=== PATIENT | male | born 1960 | race African-American/Black ===

== ENCOUNTER 2016-05-16 13:44 | Emergency (ER) | payer MEDICAID ==
[2015-04-22 07:45] VITALS: BMI 34.4
[~2016-05-16 13:44] MED LIST: DILANTIN100 MG PO; GLIMEPIRIDE1 MG PO; GLUCOPHAGE500 MG PO; HYDRALAZINE HCL25 MG PO; HYDROCODONE-APA1 TAB PO; HYTRIN1 MG PO; LANTUS SOL100 UNIT/1 SC; LANTUS SOL100 UNIT/1 SQ; NORVASC10 MG; TOPROL XL50 MG PO; ZESTRIL40 MG PO
[2016-05-16 15:05] LABS: BASOPHILS 0.3 % (0.0-2.0); EOSINOPHILS 1.8 % (0-7); HEMOGLOBIN 12.3 g/dL (13.5-17.5); LYMPHOCYTES 43.4 % (15-50); MCH 28.7 pg (26.0-34.0); MCHC 32.4 g/dL (31.0-37.0); MCV 88.8 fL (80.0-100.0); MEAN PLATELET VOLUME 9.4 fL (7.4-10.4); MONOCYTES 15.4 % (2-11); NEUTROPHILS 39.1 % (40-80); PLATELET COUNT 175 10x3/uL (130-400); RBC 4.28 10x6/uL (4.20-6.10); RDW 14.3 % (11.5-14.5); WBC 3.3 10x3/uL (4.8-10.8)
[2016-05-16 15:29] LABS: ALBUMIN 3.1 g/dL (3.4-5.0); ALKALINE PHOSPHATASE 170 U/L (46-116); ALT (SGPT) 38 U/L (10-68); BILIRUBIN - TOTAL 0.18 mg/dL (0.2-1.3); CALC OSMOLALITY 298 mosm/kg (275-300); CALCIUM 9.3 mg/dL (8.5-10.1); CARBON DIOXIDE 29.2 mmol/L (21.0-32.0); CHLORIDE - SERUM 107 mmol/L (98-107); CREATININE - SERUM 0.9 mg/dL (0.6-1.3); GLUCOSE 325 mg/dL (74-106); POTASSIUM - SERUM 3.7 mmol/L (3.5-5.1); PROTEIN - SERUM 6.9 g/dL (6.4-8.2); SODIUM 143 mmol/L (136-145); UREA NITROGEN 14 mg/dL (7-18); eGFR NON AFRICAN AMERICAN > 90 mL/min (90-120)
== END 2016-05-16 16:44 | disposition home or self-care (01) ==
LOC: D.ER 13:44
PROVIDERS: Emergency Medicine
DX: E11.65 Type 2 diabetes mellitus with hyperglycemia (principal); Z79.4 Long term (current) use of insulin; G40.909 Epilepsy, unspecified, not intractable, without status epilepticus; I10 Essential (primary) hypertension; E78.5 Hyperlipidemia, unspecified

== ENCOUNTER 2016-07-31 15:48 | Emergency (ER) | payer MEDICAID ==
[2015-04-22 07:45] VITALS: BMI 34.4
== END 2016-07-31 17:21 | disposition home or self-care (01) ==
LOC: D.ER 15:48
DX: K59.00 Constipation, unspecified (principal); G40.909 Epilepsy, unspecified, not intractable, without status epilepticus; E11.9 Type 2 diabetes mellitus without complications; E78.5 Hyperlipidemia, unspecified; I10 Essential (primary) hypertension

== ENCOUNTER 2016-11-10 11:27 | Emergency (ER) | payer MEDICAID ==
[2015-04-22 07:45] VITALS: BMI 34.4
[2016-11-10 12:08] LABS: BASOPHILS 0.2 % (0-2); EOSINOPHILS 0.7 % (0-7); HEMATOCRIT 36.5 % (42.0-54.0); HEMOGLOBIN 12.3 g/dL (13.5-17.5); IMMATURE GRANULOCYTES 0.2 % (0-5); LYMPHOCYTES 21.1 % (15-50); MCH 29.9 pg (26.0-34.0); MCHC 33.7 g/dL (31.0-37.0); MCV 88.6 fL (80.0-100.0); MEAN PLATELET VOLUME 9.2 fL (7.4-10.4); MONOCYTES 14.4 % (2-11); NEUTROPHILS 63.4 % (40-80); PLATELET COUNT 192 10x3/uL (130-400); RBC 4.12 10x6/uL (4.20-6.10); RDW 13.7 % (11.5-14.5); WBC 4.6 10x3/uL (4.8-10.8)
[2016-11-10 12:23] LABS: ALBUMIN 2.7 g/dL (3.4-5.0); ALKALINE PHOSPHATASE 168 U/L (46-116); ALT (SGPT) 19 U/L (10-68); BILIRUBIN - TOTAL 0.24 mg/dL (0.2-1.3); CALC OSMOLALITY 279 mosm/kg (275-300); CALCIUM 9.1 mg/dL (8.5-10.1); CARBON DIOXIDE 28.4 mmol/L (21.0-32.0); CHLORIDE - SERUM 103 mmol/L (98-107); CREATININE - SERUM 0.8 mg/dL (0.6-1.3); POTASSIUM - SERUM 3.7 mmol/L (3.5-5.1); SODIUM 136 mmol/L (136-145); UREA NITROGEN 10 mg/dL (7-18); eGFR NON AFRICAN AMERICAN > 90 mL/min (90-120)
[2016-11-10 12:28] LABS: GLUCOSE 262 mg/dL (74-106)
[2016-11-10 14:47] LABS: APPEARANCE CLEAR (CLEAR); COLOR DK YELLOW (YELLOW); SPECIFIC GRAVITY 1.015 (1.005-1.020)
[2016-11-10 14:48] LABS: BILIRUBIN NEGATIVE (NEGATIVE); GLUCOSE 1000 mg/dL (NEGATIVE); KETONE NEGATIVE (NEGATIVE); LEUKOCYTE ESTERASE NEGATIVE (NEGATIVE); NITRITE NEGATIVE (NEGATIVE); PROTEIN 1+ mg/dL (NEGATIVE); UROBILINOGEN NORMAL (NORMAL)
[2016-11-10 14:51] LABS: RED CELLS - URINE 0-5 /hpf (0-5); WHITE CELLS - URINE 0-5 /hpf (0-5)
[2016-11-10 14:52] LABS: AMORPHOUS SEDIMENT <1+ /lpf (NONE SEEN); BACTERIA FEW /hpf (NONE SEEN)
== END 2016-11-10 15:20 | disposition home or self-care (01) ==
LOC: D.ER 11:27
PROVIDERS: Emergency Medicine
DX: R73.9 Hyperglycemia, unspecified (principal); B37.9 Candidiasis, unspecified; I10 Essential (primary) hypertension

== ENCOUNTER 2016-11-13 07:47 | Emergency (ER) | payer MEDICAID ==
[2015-04-22 07:45] VITALS: BMI 34.4
[2016-11-13 08:45] LABS: BASOPHILS 0.3 % (0-2); EOSINOPHILS 4.7 % (0-7); HEMATOCRIT 36.3 % (42.0-54.0); LYMPHOCYTES 30.4 % (15-50); MCH 29.5 pg (26.0-34.0); MCHC 33.1 g/dL (31.0-37.0); MCV 89.2 fL (80.0-100.0); MONOCYTES 8.8 % (2-11); NEUTROPHILS 55.8 % (40-80); PLATELET COUNT 182 10x3/uL (130-400); RBC 4.07 10x6/uL (4.20-6.10); RDW 13.9 % (11.5-14.5); WBC 3.4 10x3/uL (4.8-10.8)
[2016-11-13 09:03] LABS: ALBUMIN 2.7 g/dL (3.4-5.0); ALKALINE PHOSPHATASE 156 U/L (46-116); ALT (SGPT) 23 U/L (10-68); BILIRUBIN - TOTAL 0.22 mg/dL (0.2-1.3); CALC OSMOLALITY 284 mosm/kg (275-300); CALCIUM 9.5 mg/dL (8.5-10.1); CARBON DIOXIDE 28.6 mmol/L (21.0-32.0); CHLORIDE - SERUM 105 mmol/L (98-107); CREATININE - SERUM 0.8 mg/dL (0.6-1.3); GLUCOSE 196 mg/dL (74-106); PHENYTOIN (DILANTIN) 3.5 ug/mL (10.0-20.0); POTASSIUM - SERUM 3.7 mmol/L (3.5-5.1); SODIUM 141 mmol/L (136-145); UREA NITROGEN 9 mg/dL (7-18); eGFR NON AFRICAN AMERICAN > 90 mL/min (90-120)
[2016-11-13 10:32] LABS: APPEARANCE CLEAR (CLEAR); BILIRUBIN NEGATIVE (NEGATIVE); COLOR YELLOW (YELLOW); GLUCOSE 100 mg/dL (NEGATIVE); KETONE NEGATIVE (NEGATIVE); LEUKOCYTE ESTERASE NEGATIVE (NEGATIVE); NITRITE NEGATIVE (NEGATIVE); PROTEIN TRACE mg/dL (NEGATIVE); SPECIFIC GRAVITY 1.005 (1.005-1.020); UROBILINOGEN NORMAL (NORMAL)
[2016-11-13 10:34] LABS: RED CELLS - URINE NONE SEEN /hpf (0-5); WHITE CELLS - URINE RARE /hpf (0-5)
== END 2016-11-13 11:09 | disposition home or self-care (01) ==
LOC: D.ER 07:47
PROVIDERS: Emergency Medicine
DX: G40.909 Epilepsy, unspecified, not intractable, without status epilepticus (principal); Z91.14 Patient's other noncompliance with medication regimen; E11.9 Type 2 diabetes mellitus without complications; I10 Essential (primary) hypertension

== ENCOUNTER 2016-11-16 16:00 | Emergency (ER) | payer MEDICAID ==
[2015-04-22 07:45] VITALS: BMI 34.4
[2016-11-16 17:12] LABS: BASOPHILS 0.6 % (0-2); EOSINOPHILS 2.5 % (0-7); HEMATOCRIT 39.1 % (42.0-54.0); HEMOGLOBIN 12.9 g/dL (13.5-17.5); LYMPHOCYTES 40.1 % (15-50); MCH 29.6 pg (26.0-34.0); MCV 89.7 fL (80.0-100.0); MEAN PLATELET VOLUME 9.7 fL (7.4-10.4); NEUTROPHILS 38.8 % (40-80); PLATELET COUNT 190 10x3/uL (130-400); RBC 4.36 10x6/uL (4.20-6.10); RDW 14.4 % (11.5-14.5); WBC 3.2 10x3/uL (4.8-10.8)
[2016-11-16 17:39] LABS: ALBUMIN 2.9 g/dL (3.4-5.0); ALKALINE PHOSPHATASE 172 U/L (46-116); ALT (SGPT) 28 U/L (10-68); BILIRUBIN - TOTAL 0.17 mg/dL (0.2-1.3); CALC OSMOLALITY 295 mosm/kg (275-300); CALCIUM 9.5 mg/dL (8.5-10.1); CARBON DIOXIDE 27.3 mmol/L (21.0-32.0); CHLORIDE - SERUM 103 mmol/L (98-107); POTASSIUM - SERUM 4.2 mmol/L (3.5-5.1); PROTEIN - SERUM 7.2 g/dL (6.4-8.2); SODIUM 138 mmol/L (136-145); UREA NITROGEN 17 mg/dL (7-18); eGFR NON AFRICAN AMERICAN 83 mL/min (90-120)
[2016-11-16 17:53] LABS: GLUCOSE 431 mg/dL (74-106)
[2016-11-16 18:46] LABS: AMYLASE - SERUM 61 U/L (25-115); LIPASE 172 U/L (73-393)
[2016-11-16 21:41] LABS: APPEARANCE CLEAR (CLEAR); COLOR YELLOW (YELLOW); SPECIFIC GRAVITY 1.015 (1.005-1.020)
[2016-11-16 21:42] LABS: BILIRUBIN NEGATIVE (NEGATIVE); GLUCOSE 500 mg/dL (NEGATIVE); KETONE NEGATIVE (NEGATIVE); LEUKOCYTE ESTERASE NEGATIVE (NEGATIVE); NITRITE NEGATIVE (NEGATIVE); PROTEIN TRACE mg/dL (NEGATIVE); UROBILINOGEN NORMAL (NORMAL)
== END 2016-11-16 23:41 | disposition home or self-care (01) ==
LOC: D.ER 16:00
PROVIDERS: Emergency Medicine; Nurse Practitioner Family
DX: R10.9 Unspecified abdominal pain (principal); E11.9 Type 2 diabetes mellitus without complications; I10 Essential (primary) hypertension; F17.200 Nicotine dependence, unspecified, uncomplicated

== ENCOUNTER 2017-01-17 11:53 | Outpatient (CLI) | payer MEDICAID ==
[~2017-01-17] VITALS: Ht 190.5 cm; Wt 121.4 kg
[2017-01-17 13:44] VITALS: BP 148/75; Ht 190.5 cm; Wt 121.4 kg
--- NOTE | 2017-01-17 13:59 | NUR ---
HALF A BAG OF SS ENEMA TO PATIENT WHILE HE IS LYING ON LEFT SIDE. UNABLE TO FEEL STOOL, BUT END OF ENEMA TIP HAS SOFT BROWN STOOL. INSTRUCTED WHEN HE EXPELS ENEMA TO CALL US FOR SECOND ENEMA.
== END 2017-01-17 16:30 | disposition home or self-care (01) ==
LOC: D.OPS 11:53 → D.ER 11:53 → EDSTATUS 13:00 → D.OPS 16:30
DX: K59.00 Constipation, unspecified (principal); K62.89 Other specified diseases of anus and rectum; I10 Essential (primary) hypertension; E11.9 Type 2 diabetes mellitus without complications

== ENCOUNTER 2017-01-29 01:28 | Emergency (ER) | payer MEDICAID ==
[2017-01-17 13:44] VITALS: BMI 33.4
== END 2017-01-29 06:23 | disposition home or self-care (01) ==
LOC: D.ER 01:28
DX: K59.00 Constipation, unspecified (principal); R33.9 Retention of urine, unspecified; E11.9 Type 2 diabetes mellitus without complications; I10 Essential (primary) hypertension

== ENCOUNTER 2017-01-29 13:00 | Emergency (ER) | payer MEDICAID ==
[2017-01-17 13:44] VITALS: BMI 33.4
[2017-01-29 17:13] LABS: BASOPHILS 0.3 % (0-2); EOSINOPHILS 0 % (0-7); HEMATOCRIT 40.8 % (42.0-54.0); HEMOGLOBIN 13.6 g/dL (13.5-17.5); IMMATURE GRANULOCYTES 0.1 % (0-5); LYMPHOCYTES 13.4 % (15-50); MCH 29.6 pg (26.0-34.0); MCHC 33.3 g/dL (31.0-37.0); MCV 88.9 fL (80.0-100.0); MEAN PLATELET VOLUME 10.5 fL (7.4-10.4); MONOCYTES 8.1 % (2-11); NEUTROPHILS 78.1 % (40-80); PLATELET COUNT 184 10x3/uL (130-400); RBC 4.59 10x6/uL (4.20-6.10); RDW 13.9 % (11.5-14.5)
[2017-01-29 17:14] LABS: INR 1.02 (0.85-1.17); PROTIME 13.2 SECONDS (11.6-15.0)
[2017-01-29 17:40] LABS: ALBUMIN 3.2 g/dL (3.4-5.0); ALKALINE PHOSPHATASE 210 U/L (46-116); ALT (SGPT) 18 U/L (10-68); AMYLASE - SERUM 44 U/L (25-115); BILIRUBIN - TOTAL 0.44 mg/dL (0.2-1.3); CALC OSMOLALITY 273 mosm/kg (275-300); CALCIUM 9.5 mg/dL (8.5-10.1); CARBON DIOXIDE 21.8 mmol/L (21.0-32.0); CHLORIDE - SERUM 98 mmol/L (98-107); CREATININE - SERUM 0.8 mg/dL (0.6-1.3); LIPASE 76 U/L (73-393); POTASSIUM - SERUM 3.6 mmol/L (3.5-5.1); PROTEIN - SERUM 7.9 g/dL (6.4-8.2); SODIUM 134 mmol/L (136-145); UREA NITROGEN 13 mg/dL (7-18); eGFR NON AFRICAN AMERICAN > 90 mL/min (90-120)
[2017-01-29 17:41] LABS: APPEARANCE HAZY (CLEAR); BILIRUBIN NEGATIVE (NEGATIVE); COLOR YELLOW (YELLOW); GLUCOSE NEGATIVE (NEGATIVE); KETONE MODERATE mg/dL (NEGATIVE); LEUKOCYTE ESTERASE NEGATIVE (NEGATIVE); NITRITE NEGATIVE (NEGATIVE); PROTEIN TRACE mg/dL (NEGATIVE); SPECIFIC GRAVITY 1.025 (1.005-1.020); UROBILINOGEN NORMAL (NORMAL)
[2017-01-29 17:42] LABS: BACTERIA FEW /hpf (NONE SEEN)
[2017-01-29 17:45] LABS: GLUCOSE 208 mg/dL (74-106)
== END 2017-01-29 18:36 | disposition home or self-care (01) ==
LOC: D.ER 13:00
PROVIDERS: Physician Assistant
DX: K59.00 Constipation, unspecified (principal); K56.41 Fecal impaction; N39.0 Urinary tract infection, site not specified; E11.9 Type 2 diabetes mellitus without complications; I10 Essential (primary) hypertension

== ENCOUNTER 2017-06-13 14:02 | Emergency (ER) | payer MEDICAID ==
[2017-01-17 13:44] VITALS: BMI 33.4
[2017-06-13 16:02] LABS: APPEARANCE HAZY (CLEAR); BILIRUBIN NEGATIVE (NEGATIVE); COLOR YELLOW (YELLOW); GLUCOSE 50 mg/dL (NEGATIVE); KETONE NEGATIVE (NEGATIVE); NITRITE NEGATIVE (NEGATIVE); PROTEIN 1+ mg/dL (NEGATIVE); SPECIFIC GRAVITY 1.005 (1.005-1.020); UROBILINOGEN NORMAL (NORMAL)
[2017-06-13 16:03] LABS: RED CELLS - URINE 0-5 /hpf (0-5); WHITE CELLS - URINE >50 /hpf (0-5)
[2017-06-13 16:04] LABS: BACTERIA FEW /hpf (NONE SEEN)
== END 2017-06-13 16:45 | disposition home or self-care (01) ==
LOC: D.ER 14:02
PROVIDERS: Emergency Medicine
DX: K64.9 Unspecified hemorrhoids (principal); N39.0 Urinary tract infection, site not specified; I10 Essential (primary) hypertension; E11.9 Type 2 diabetes mellitus without complications

== ENCOUNTER 2017-06-14 11:34 | Emergency (ER) | payer MEDICAID ==
[2017-01-17 13:44] VITALS: BMI 33.4
== END 2017-06-14 15:21 | disposition home or self-care (01) ==
LOC: D.ER 11:34
DX: K61.0 Anal abscess (principal); E11.9 Type 2 diabetes mellitus without complications; I10 Essential (primary) hypertension; G40.909 Epilepsy, unspecified, not intractable, without status epilepticus

== ENCOUNTER 2017-07-21 10:54 | Emergency (ER) | payer MEDICAID ==
[2017-01-17 13:44] VITALS: BMI 33.4
[2017-07-21 11:38] LABS: BASOPHILS 0.1 % (0-2); EOSINOPHILS 0.2 % (0-7); HEMATOCRIT 29.9 % (42.0-54.0); IMMATURE GRANULOCYTES 0.3 % (0-5); LYMPHOCYTES 9.7 % (15-50); MCH 28.5 pg (26.0-34.0); MCHC 33.4 g/dL (31.0-37.0); MCV 85.2 fL (80.0-100.0); MEAN PLATELET VOLUME 8.1 fL (7.4-10.4); MONOCYTES 7.2 % (2-11); NEUTROPHILS 82.5 % (40-80); RBC 3.51 10x6/uL (4.20-6.10); RDW 14.5 % (11.5-14.5); WBC 13.2 10x3/uL (4.8-10.8)
[2017-07-21 11:39] LABS: PLATELET COUNT 331 10x3/uL (130-400)
[2017-07-21 11:53] LABS: ALBUMIN 1.8 g/dL (3.4-5.0); ALKALINE PHOSPHATASE 175 U/L (46-116); ALT (SGPT) 15 U/L (10-68); BILIRUBIN - TOTAL 0.44 mg/dL (0.2-1.3); CALC OSMOLALITY 265 mosm/kg (275-300); CALCIUM 10.2 mg/dL (8.5-10.1); CARBON DIOXIDE 26.1 mmol/L (21.0-32.0); CHLORIDE - SERUM 93 mmol/L (98-107); GLUCOSE 250 mg/dL (74-106); POTASSIUM - SERUM 3.8 mmol/L (3.5-5.1); PROTEIN - SERUM 8.5 g/dL (6.4-8.2); SODIUM 129 mmol/L (136-145); UREA NITROGEN 10 mg/dL (7-18); eGFR NON AFRICAN AMERICAN 82 mL/min (90-120)
[2017-07-21 12:02] LABS: CREATINE KINASE 15 UL (21-232); LIPASE 67 U/L (73-393); PRO BNP 235 pg/mL (0-125); TROPONIN-I < 0.017 ng/mL (0.000-0.060)
[2017-07-21 13:44] LABS: APPEARANCE HAZY (CLEAR); BILIRUBIN NEGATIVE (NEGATIVE); COLOR YELLOW (YELLOW); GLUCOSE 250 mg/dL (NEGATIVE); KETONE SMALL mg/dL (NEGATIVE); NITRITE NEGATIVE (NEGATIVE); PROTEIN 1+ mg/dL (NEGATIVE); UROBILINOGEN NORMAL (NORMAL)
[2017-07-21 13:50] LABS: BACTERIA MODERATE /hpf (NONE SEEN); EPITHELIAL CELLS OCC /hpf (0-5); HYALINE CAST OCC /lpf (NONE SEEN); WHITE CELLS - URINE 25-50 /hpf (0-5)
[2017-07-21 13:57] LABS: UDS - AMPHET NEGATIVE QUAL (NEGATIVE); UDS - BARB NEGATIVE QUAL (NEGATIVE); UDS - BENZO NEGATIVE QUAL (NEGATIVE); UDS - COCAINE NEGATIVE QUAL (NEGATIVE); UDS - PCP NEGATIVE QUAL (NEGATIVE); UDS - THC POSITIVE QUAL (NEGATIVE)
[2017-07-21 14:04] LABS: UDS - OPIATE NEGATIVE QUAL (NEGATIVE)
== END 2017-07-21 15:35 | disposition home or self-care (01) ==
LOC: D.ER 10:54
PROVIDERS: Family Medicine
DX: J18.9 Pneumonia, unspecified organism (principal); N39.0 Urinary tract infection, site not specified; D64.9 Anemia, unspecified; I10 Essential (primary) hypertension; R00.0 Tachycardia, unspecified

== ENCOUNTER 2017-07-28 12:09 | Inpatient (IN) | payer MEDICAID ==
[~2017-07-28] VITALS: Ht 190.5 cm; Wt 120.2 kg
[2017-07-28 13:41] LABS: BASOPHILS 0.2 % (0-2); EOSINOPHILS 0.3 % (0-7); HEMATOCRIT 31.5 % (42.0-54.0); HEMOGLOBIN 10.6 g/dL (13.5-17.5); IMMATURE GRANULOCYTES 0.3 % (0-5); LYMPHOCYTES 23.2 % (15-50); MCH 28.6 pg (26.0-34.0); MCHC 33.7 g/dL (31.0-37.0); MCV 85.1 fL (80.0-100.0); MEAN PLATELET VOLUME 7.7 fL (7.4-10.4); MONOCYTES 13.3 % (2-11); NEUTROPHILS 62.7 % (40-80); PLATELET COUNT 287 10x3/uL (130-400); RDW 14.2 % (11.5-14.5); WBC 6.2 10x3/uL (4.8-10.8)
[2017-07-28 13:47] LABS: APPEARANCE CLEAR (CLEAR); COLOR YELLOW (YELLOW)
[2017-07-28 13:48] LABS: BILIRUBIN NEGATIVE (NEGATIVE); GLUCOSE 1000 mg/dL (NEGATIVE); KETONE NEGATIVE (NEGATIVE); NITRITE NEGATIVE (NEGATIVE); PROTEIN NEGATIVE (NEGATIVE); SPECIFIC GRAVITY 1.005 (1.005-1.020); UROBILINOGEN NORMAL (NORMAL)
[2017-07-28 13:51] LABS: RED CELLS - URINE 0-5 /hpf (0-5)
[2017-07-28 14:16] LABS: ALBUMIN 2.1 g/dL (3.4-5.0); ALKALINE PHOSPHATASE 182 U/L (46-116); ALT (SGPT) 15 U/L (10-68); BILIRUBIN - TOTAL 0.21 mg/dL (0.2-1.3); CALC OSMOLALITY 273 mosm/kg (275-300); CALCIUM 10.2 mg/dL (8.5-10.1); CARBON DIOXIDE 29.9 mmol/L (21.0-32.0); CHLORIDE - SERUM 95 mmol/L (98-107); POTASSIUM - SERUM 4.2 mmol/L (3.5-5.1); PROTEIN - SERUM 8.5 g/dL (6.4-8.2); SODIUM 129 mmol/L (136-145); UREA NITROGEN 14 mg/dL (7-18); eGFR NON AFRICAN AMERICAN 82 mL/min (90-120)
[2017-07-28 14:18] LABS: GLUCOSE 357 mg/dL (74-106)
[2017-07-28 14:22] LABS: CREATINE KINASE 16 UL (21-232); LIPASE 99 U/L (73-393); PRO BNP 106 pg/mL (0-125)
[2017-07-28 14:23] LABS: TROPONIN-I < 0.017 ng/mL (0.000-0.060)
[2017-07-28 16:54] LABS: MAGNESIUM - SERUM 1.8 mg/dL (1.8-2.4); POTASSIUM - SERUM 4.2 mmol/L (3.5-5.1)
[2017-07-28 22:04] VITALS: BP 116/68
[2017-07-29] VITALS (7 sets, daily range): BP systolic 108–172; BP diastolic 54–84; BMI 24.4
[2017-07-29] MEDS ORDERED: LIPITOR10 MG PO (04:33)
[2017-07-29] MEDS ORDERED: LANTUS INSULIN10 ML SC (04:35)
[2017-07-29 06:07] LABS: BASOPHILS 0.3 % (0-2); EOSINOPHILS 0.1 % (0-7); HEMATOCRIT 28.8 % (42.0-54.0); HEMOGLOBIN 9.2 g/dL (13.5-17.5); IMMATURE GRANULOCYTES 0.3 % (0-5); LYMPHOCYTES 18.1 % (15-50); MCH 27.6 pg (26.0-34.0); MCHC 31.9 g/dL (31.0-37.0); MCV 86.5 fL (80.0-100.0); MEAN PLATELET VOLUME 7.7 fL (7.4-10.4); MONOCYTES 11.2 % (2-11); PLATELET COUNT 256 10x3/uL (130-400); RBC 3.33 10x6/uL (4.20-6.10); RDW 14.4 % (11.5-14.5); WBC 7.4 10x3/uL (4.8-10.8)
[2017-07-29 06:52] LABS: ALBUMIN 1.8 g/dL (3.4-5.0); ALKALINE PHOSPHATASE 146 U/L (46-116); ALT (SGPT) 13 U/L (10-68); BILIRUBIN - TOTAL 0.18 mg/dL (0.2-1.3); CALC OSMOLALITY 266 mosm/kg (275-300); CALCIUM 9.4 mg/dL (8.5-10.1); CARBON DIOXIDE 28.7 mmol/L (21.0-32.0); CHLORIDE - SERUM 100 mmol/L (98-107); CREATININE - SERUM 0.9 mg/dL (0.6-1.3); GLUCOSE 97 mg/dL (74-106); POTASSIUM - SERUM 3.9 mmol/L (3.5-5.1); PROTEIN - SERUM 7.8 g/dL (6.4-8.2); SODIUM 133 mmol/L (136-145); UREA NITROGEN 14 mg/dL (7-18); eGFR NON AFRICAN AMERICAN > 90 mL/min (90-120)
[2017-07-30 04:00] VITALS: BP 110/59
[2017-07-30 06:01] LABS: BASOPHILS 0.2 % (0-2); EOSINOPHILS 0.5 % (0-7); HEMATOCRIT 26.7 % (42.0-54.0); HEMOGLOBIN 8.6 g/dL (13.5-17.5); IMMATURE GRANULOCYTES 0.2 % (0-5); LYMPHOCYTES 24.1 % (15-50); MCH 27.7 pg (26.0-34.0); MCHC 32.2 g/dL (31.0-37.0); MCV 85.9 fL (80.0-100.0); MEAN PLATELET VOLUME 8.1 fL (7.4-10.4); MONOCYTES 12.9 % (2-11); NEUTROPHILS 62.1 % (40-80); PLATELET COUNT 226 10x3/uL (130-400); RBC 3.11 10x6/uL (4.20-6.10); RDW 14.5 % (11.5-14.5); WBC 5.7 10x3/uL (4.8-10.8)
[2017-07-30 06:38] LABS: ALBUMIN 1.7 g/dL (3.4-5.0); ALKALINE PHOSPHATASE 126 U/L (46-116); ALT (SGPT) 14 U/L (10-68); CALC OSMOLALITY 269 mosm/kg (275-300); CALCIUM 8.9 mg/dL (8.5-10.1); CARBON DIOXIDE 24.3 mmol/L (21.0-32.0); CHLORIDE - SERUM 103 mmol/L (98-107); GLUCOSE 98 mg/dL (74-106); POTASSIUM - SERUM 3.6 mmol/L (3.5-5.1); PROTEIN - SERUM 7.3 g/dL (6.4-8.2); SODIUM 134 mmol/L (136-145); UREA NITROGEN 17 mg/dL (7-18); eGFR NON AFRICAN AMERICAN 82 mL/min (90-120)
[2017-07-30 08:39] VITALS: BP 117/58
[2017-07-30 12:05] VITALS: BP 106/77
[2017-07-30 14:56] VITALS: Ht 190.5 cm; Wt 120.2 kg
[2017-07-30] MEDS ORDERED: LEVAQUIN750 MG PO (15:31)
[2017-07-30] MEDS ORDERED: PROTONIX40 MG PO (15:32)
== END 2017-07-30 16:43 | disposition home or self-care (01) | DRG 194 ==
LOC: D.ER 12:09 → D.EDHOLD 16:00 → OBSVTIME 16:00 → D.MS 16:01 → D.EDHOLD 16:01 → D.MS 17:43
PROVIDERS: Family Medicine; Family Medicine Adult Medicine
DX: J18.9 Pneumonia, unspecified organism (principal); F17.203 Nicotine dependence unspecified, with withdrawal; E11.40 Type 2 diabetes mellitus with diabetic neuropathy, unspecified; E11.65 Type 2 diabetes mellitus with hyperglycemia; M51.36 Other intervertebral disc degeneration, lumbar region; E86.0 Dehydration

== ENCOUNTER 2017-07-30 18:57 | Emergency (ER) | payer MEDICAID ==
[2017-07-30 14:56] VITALS: BMI 33.1
[~2017-07-30 18:57] MED LIST changes: +LANTUS INSULIN10 ML SC; +LEVAQUIN750 MG PO; +LIPITOR10 MG PO; +PROTONIX40 MG PO
[2017-07-30 21:25] LABS: BASOPHILS 0.1 % (0-2); EOSINOPHILS 0.3 % (0-7); HEMATOCRIT 27.3 % (42.0-54.0); HEMOGLOBIN 8.9 g/dL (13.5-17.5); IMMATURE GRANULOCYTES 0.4 % (0-5); LYMPHOCYTES 11.5 % (15-50); MCH 27.9 pg (26.0-34.0); MCHC 32.6 g/dL (31.0-37.0); MCV 85.6 fL (80.0-100.0); MEAN PLATELET VOLUME 7.8 fL (7.4-10.4); MONOCYTES 7.7 % (2-11); PLATELET COUNT 206 10x3/uL (130-400); RBC 3.19 10x6/uL (4.20-6.10); RDW 14.7 % (11.5-14.5)
[2017-07-30 21:36] LABS: WBC 7.9 10x3/uL (4.8-10.8)
[2017-07-30 21:43] LABS: ALBUMIN 1.8 g/dL (3.4-5.0); ALKALINE PHOSPHATASE 137 U/L (46-116); ALT (SGPT) 17 U/L (10-68); CALC OSMOLALITY 275 mosm/kg (275-300); CALCIUM 9.2 mg/dL (8.5-10.1); CARBON DIOXIDE 24.9 mmol/L (21.0-32.0); CHLORIDE - SERUM 103 mmol/L (98-107); PHENYTOIN (DILANTIN) 5.5 ug/mL (10.0-20.0); POTASSIUM - SERUM 3.9 mmol/L (3.5-5.1); PROTEIN - SERUM 7.8 g/dL (6.4-8.2); SODIUM 136 mmol/L (136-145); UREA NITROGEN 15 mg/dL (7-18); eGFR NON AFRICAN AMERICAN 82 mL/min (90-120)
[2017-07-30 21:44] LABS: GLUCOSE 150 mg/dL (74-106)
== END 2017-07-30 23:44 | disposition home or self-care (01) ==
LOC: D.ER 18:57
PROVIDERS: Family Medicine
DX: G40.909 Epilepsy, unspecified, not intractable, without status epilepticus (principal); J18.9 Pneumonia, unspecified organism

== ENCOUNTER 2018-02-07 05:08 | Day surgery (SDC) | payer MEDICAID ==
[~2018-02-07] VITALS: Ht 190.5 cm; Wt 101.2 kg
--- NOTE | ~2018-02-07 | OP ---
PATIENT NAME: RIKKI RIVERA MEDICAL RECORD: [id number] :64 LOCATION:D.OPS ADMISSION DATE: SURGEON: ROMMEL STARKS MD DATE OF OPERATION: 02/07/2018 PREOPERATIVE DIAGNOSES: 1. Lnjvyxz-up-yje. 2. Chronic constipation. 3. Diabetes mellitus. 4. Hypertension. 5. Tobacco dependence syndrome. POSTOPERATIVE DIAGNOSES: 1. Klbyrdx-ub-nbk. 2. Chronic constipation. 3. Diabetes mellitus. 4. Hypertension. 5. Tobacco dependence syndrome. PROCEDURE: 1. Anal exam under anesthesia. 2. Seton stitch placement. SURGEON: Rommel Starks MD REPORT OF PROCEDURE: The patient was placed in lithotomy position and the perianal region was prepped and draped in sterile fashion. An anoscope was inserted and a 360 degree inspection was performed. The patient did have some mixed internal and external hemorrhoids on the posterior aspect on the left side. The patient was noted to have an anal fistula. This was on the anoderm at approximately the 5 o'clock position and internally was at the 6 o'clock position. I was able to place probes internally and was eventually able to track the wound up above the sphincteric musculature. Once I was able to get completely through this opening, then I opened up the external surface a little bit where there was a pocket of pus present. Cultures were taken times 2. We then placed a red vessel loop through the wound and tied this down tightly. This was then tied once again with a 3-0 Vicryl stitch. The wound was then irrigated out with peroxide and saline solution. We then inserted a piece of Gelfoam dipped in Americaine. COMPLICATIONS: None. CONDITION: Stable. ANESTHESIA: General endotracheal. BLOOD LOSS: 30 mL. TRANSINT:[id number] Voice Confirmation ID: [id number] DOCUMENT ID: [id number] OPERATIVE REPORT [id number] MIGUELALEXI REDDYRIKKI A ROMMEL STARKS MD at 1409 CC: TREVOR DYER MD [id number] DICTATION DATE: 02/07/18 0852 DIGITAL CONTENT SPECIALIST: 02/07/18 1218 [facility] 02/07/18 [place] [address]
[~2018-02-07 05:08] MED LIST changes: -HYDRALAZINE HCL25 MG PO; +HYDRALAZINE HCL50 MG PO; -HYTRIN1 MG PO; +HYTRIN5 MG PO; +LANTUS INSULIN INJ; +LIPITOR20 MG PO; +METOPROLOL TART50 MG PO; -NORVASC10 MG; +NORVASC10 MG PO; -TOPROL XL50 MG PO
[2018-02-07 05:36] LABS: BASOPHILS 0.2 % (0-2); LYMPHOCYTES 23.9 % (15-50); MCH 29.5 pg (26.0-34.0); MCHC 33.3 g/dL (31.0-37.0); MCV 88.5 fL (80.0-100.0); MEAN PLATELET VOLUME 8.2 fL (7.4-10.4); MONOCYTES 11.6 % (2-11); NEUTROPHILS 63.3 % (40-80); PLATELET COUNT 202 10x3/uL (130-400); RBC 3.73 10x6/uL (4.20-6.10); RDW 15.1 % (11.5-14.5)
[2018-02-07 05:51] LABS: CALC OSMOLALITY 271 mosm/kg (275-300); CALCIUM 9.4 mg/dL (8.5-10.1); CARBON DIOXIDE 28.4 mmol/L (21.0-32.0); CHLORIDE - SERUM 104 mmol/L (98-107); POTASSIUM - SERUM 3.8 mmol/L (3.5-5.1); SODIUM 137 mmol/L (136-145); UREA NITROGEN 10 mg/dL (7-18); eGFR NON AFRICAN AMERICAN 82 mL/min (90-120)
[2018-02-07 05:56] LABS: GLUCOSE 80 mg/dL (74-106)
[2018-02-07 07:30] VITALS: BP 123/67; Ht 190.5 cm; Wt 101.2 kg
[2018-02-07] MEDS ORDERED: NORCO 10-325 TA1 TAB PO (08:46)
[2018-02-07] MEDS ORDERED: FLAGYL500 MG PO (08:48)
[2018-02-07] MEDS ORDERED: LEVAQUIN750 MG PO (08:48)
[2018-02-14 13:18] LABS: AEROBE ID Final report (())
== END 2018-02-07 11:40 | disposition home or self-care (01) ==
LOC: D.OPS 05:08 → D.PAN 08:00 → D.OPS 08:00
PROVIDERS: Surgery
DX: K60.3 Anal fistula (principal); K64.4 Residual hemorrhoidal skin tags; K64.8 Other hemorrhoids; K59.09 Other constipation; E11.9 Type 2 diabetes mellitus without complications; F17.200 Nicotine dependence, unspecified, uncomplicated; Z01.812 Encounter for preprocedural laboratory examination

== ENCOUNTER 2018-02-21 05:42 | Day surgery (SDC) | payer MEDICAID ==
[~2018-02-21] VITALS: Ht 190.5 cm; Wt 107.5 kg
--- NOTE | ~2018-02-21 | OP ---
PATIENT NAME: RIKKI RIVERA MEDICAL RECORD: [id number] :64 LOCATION:D.OPS ADMISSION DATE: SURGEON: ARTURO STARKS MD DATE OF OPERATION: 02/21/2018 PREOPERATIVE DIAGNOSES: 1. Anal fistula with seton stitch. 2. Hypertension. 3. Diabetes mellitus. 4. Seizure disorder. POSTOPERATIVE DIAGNOSES: 1. Anal fistula with seton stitch. 2. Hypertension. 3. Diabetes mellitus. 4. Seizure disorder. PROCEDURES: 1. Anal exam under anesthesia. 2. Removal of seton stitch. 3. Sphincterotomy. SURGEON: Arturo Starks MD REPORT OF PROCEDURE: The patient was placed in lithotomy position. The perianal region was prepped and draped in sterile fashion. An anoscope was inserted and a 360-degree inspection was performed. At the 5 o'clock position, the patient had a large tear in the tissue with the seton stitch in place. This seton stitch was loosely wrapped around the most externalized portion of the internal sphincter. I could feel the internal sphincter inferiorly to this and also the external sphincter lateral. I went ahead and just transected this portion of the sphincter and removed the seton stitch essentially performing a lateral internal sphincterotomy. I then inspected the tissues and saw there was no sign of any fistulous cavities or tracts remaining. The open fissure was wide based with good granulation tissue and no signs of infection. I treated any of the areas that were bleeding with electrocautery and then irrigated out the wound with normal saline. COMPLICATIONS: None. CONDITION: Stable. ANESTHESIA: General endotracheal. BLOOD LOSS: 10 mL. TRANSINT:[id number] Voice Confirmation ID: [id number] DOCUMENT ID: [id number] OPERATIVE REPORT [id number] RIKKI RIVERA ARTURO STARKS MD at 1409 CC: TREVOR DYER MD [id number] DICTATION DATE: 02/21/18837 SUGAR REFINER: 02/21/[address] [facility] 02/21/18 [facility] [address] [place] [address]
[~2018-02-21 05:42] MED LIST changes: +FLAGYL500 MG PO; +NORCO 10-325 TA1 TAB PO
[2018-02-21 06:03] LABS: HEMATOCRIT 31.2 % (42.0-54.0); HEMOGLOBIN 10.3 g/dL (13.5-17.5); MCH 29.8 pg (26.0-34.0); MCV 90.2 fL (80.0-100.0); RBC 3.46 10x6/uL (4.20-6.10); RDW 15.4 % (11.5-14.5); WBC 4.3 10x3/uL (4.8-10.8)
[2018-02-21 06:10] LABS: ANION GAP 11.9 mmol/L (8-16); CALCIUM 8.9 mg/dL (8.5-10.1); CARBON DIOXIDE 27.3 mmol/L (21.0-32.0); CREATININE - SERUM 1.1 mg/dL (0.6-1.3); POTASSIUM - SERUM 4.2 mmol/L (3.5-5.1)
[2018-02-21 06:39] VITALS: Ht 190.5 cm; Wt 107.5 kg
[2018-02-21] MEDS ORDERED: NORCO 10-325 TA1 TAB PO (08:33)
== END 2018-02-21 10:40 | disposition home or self-care (01) ==
LOC: D.OPS 05:42 → D.PAN 08:00 → D.OPS 08:00
PROVIDERS: Anesthesiology
DX: K60.5 Anorectal fistula (principal); I10 Essential (primary) hypertension; E11.9 Type 2 diabetes mellitus without complications; G40.909 Epilepsy, unspecified, not intractable, without status epilepticus; Z01.812 Encounter for preprocedural laboratory examination

== ENCOUNTER 2018-05-13 09:42 | Observation (INO) | payer MEDICAID ==
[~2018-05-13] VITALS: Ht 190.5 cm; Wt 105.5 kg
[2018-05-13] VITALS (7 sets, daily range): BP systolic 162–233; BP diastolic 89–120; Ht 190.5 cm; Wt 105.5 kg
[2018-05-13] MEDS ORDERED: GLIMEPIRIDE4 MG PO (09:47)
[2018-05-13] MEDS ORDERED: GLUCOPHAGE500 MG PO (09:48)
--- NOTE | 2018-05-13 10:04 | NUR ---
PT ASSISTED TWICE WITH URINAL, UNABLE TO PROVIDE URINE SAMPLE AT THIS TIME. PT MADE AWARE THAT URINE SAMPLE IS NEEDED CLARA FOR ORDERED LABS. PT VOICED UNDERSTANDING.
--- NOTE | 2018-05-13 10:54 | NUR ---
PT LEAVING THE ED VIA STRETCHER AT THIS TIME FOR ORDERED CT SCAN. NO SIGNS OF DISTRESS NOTED WHEN LEAVING. C-COLLAR REMAINS IN PLACE.
[2018-05-13 11:02] LABS: ALBUMIN 2.8 g/dL (3.4-5.0); ALKALINE PHOSPHATASE 188 U/L (46-116); ALT (SGPT) 18 U/L (10-68); BILIRUBIN - TOTAL 0.42 mg/dL (0.2-1.3); CALC OSMOLALITY 286 mosm/kg (275-300); CALCIUM 9.7 mg/dL (8.5-10.1); CARBON DIOXIDE 24.8 mmol/L (21.0-32.0); CHLORIDE - SERUM 103 mmol/L (98-107); POTASSIUM - SERUM 3.4 mmol/L (3.5-5.1); PROTEIN - SERUM 7.9 g/dL (6.4-8.2); SODIUM 140 mmol/L (136-145); UREA NITROGEN 20 mg/dL (7-18); eGFR NON AFRICAN AMERICAN 82 mL/min (90-120)
[2018-05-13 11:03] LABS: GLUCOSE 187 mg/dL (74-106); MAGNESIUM - SERUM 1.7 mg/dL (1.8-2.4); PHENYTOIN (DILANTIN) 1.4 ug/mL (10.0-20.0)
[2018-05-13 11:05] LABS: UDS - AMPHET POSITIVE QUAL (NEGATIVE); UDS - BARB NEGATIVE QUAL (NEGATIVE); UDS - BENZO NEGATIVE QUAL (NEGATIVE); UDS - COCAINE POSITIVE QUAL (NEGATIVE); UDS - OPIATE NEGATIVE QUAL (NEGATIVE); UDS - PCP NEGATIVE QUAL (NEGATIVE); UDS - THC POSITIVE QUAL (NEGATIVE)
[2018-05-13 11:08] LABS: BASOPHILS 0.4 % (0-2); EOSINOPHILS 0.9 % (0-7); HEMATOCRIT 34.2 % (42.0-54.0); HEMOGLOBIN 11.3 g/dL (13.5-17.5); IMMATURE GRANULOCYTES 0.2 % (0-5); LYMPHOCYTES 18.4 % (15-50); MCV 87.7 fL (80.0-100.0); MONOCYTES 9.7 % (2-11); NEUTROPHILS 70.4 % (40-80); PLATELET COUNT 203 10x3/uL (130-400); RDW 14.5 % (11.5-14.5); WBC 4.5 10x3/uL (4.8-10.8)
[2018-05-13 11:10] LABS: APPEARANCE HAZY (CLEAR); BACTERIA FEW /hpf (NONE SEEN); BILIRUBIN NEGATIVE (NEGATIVE); COLOR YELLOW (YELLOW); EPITHELIAL CELLS 0-5 /hpf (0-5); GLUCOSE 50 mg/dL (NEGATIVE); KETONE NEGATIVE (NEGATIVE); MUCUS <1+ /lpf (NONE SEEN); NITRITE NEGATIVE (NEGATIVE); PROTEIN 3+ mg/dL (NEGATIVE); RED CELLS - URINE >50 /hpf (0-5); UROBILINOGEN NORMAL (NORMAL); WHITE CELLS - URINE 0-5 /hpf (0-5)
[2018-05-13 11:11] LABS: HYALINE CAST 0-5 /lpf (NONE SEEN)
--- NOTE | 2018-05-13 11:17 | NUR ---
EDP MADE AWARE OF PT'S BP OF 205/112 AT THIS TIME. PT LYING SUPINE, NO SIGNS OF DISTRESS. CALL LIGHT IN REACH.
--- NOTE | 2018-05-13 11:24 | NUR ---
PER EDP VERBAL ORDER, PT'S C-COLLAR REMOVED AT THIS TIME.
--- NOTE | 2018-05-13 13:10 | NUR ---
PT SITTING IN SEMI-COOK'S, ALERT AND ORIENTED X4. NO SIGNS OF DISTRESS. CALL LIGHT IN REACH, PT DENIES ANY NEEDS AT THIS TIME.
[2018-05-13 14:12] LABS: CREATINE KINASE 87 UL (21-232)
[2018-05-13 14:20] LABS: TROPONIN-I 0.061 ng/mL (0.000-0.060)
--- NOTE | 2018-05-13 15:04 | NUR ---
PT OBSERVED SITTING UPRIGHT IN BED, RESPIRATIONS EVEN AND UNLABORED. NO SIGNS OF DISTRESS. CALL LIGHT IN REACH, PT DENIES ANY NEEDS AT THIS TIME. WILL CONTINUE TO MONITOR.
--- NOTE | 2018-05-13 15:46 | NUR ---
PT GIVEN DIABETIC MEAL TRAY AT THIS TIME.
--- NOTE | 2018-05-13 16:27 | NUR ---
PT ASSIGNED TO ROOM 2121 AT 1549, ROOM DIRTY, STAT CLEAN REQUESTED.
--- NOTE | 2018-05-13 17:13 | NUR ---
FSBS 147 AT 1621.
[2018-05-13 20:00] LABS: CKMB 1.2 U/L (0.0-3.6); CREATINE KINASE 128 UL (21-232)
--- NOTE | 2018-05-13 20:00 | NUR ---
PT WAS ADMITTED TO ROOM 2121 @ 1838. ALERT/ORIENTED, BUT SLOW TO RESPOND. CONVERSATION STILTED AND HISTORIAN STATUS IS QUESTIONABLE. ADMITS TO TAKING ALL TYPES OF ILLEGAL SUBSTANCES AND SAYS HE HAS TO OR HE WILL BECOME ANGRY AND HURT SOMEONE. LARGE HEMATOMA LOCATED ON RIGHT EYEBROWN. NEURO CHECKS EVERY 4 HOURS. IV TO RIGHT HAND SALINE LOCKED. HE IS AN BELOW ELBOW LEFT ARM AMPUTEE. ADMISSION ASSESSMENT COMPLETED. HOME MEDS REVIEWED WITH POOR RECALL PER PT, PLUS HE SAYS HIS MEDS RAN OUT SEVERAL WEEKS AGO.
[2018-05-13 20:08] LABS: TROPONIN-I 0.086 ng/mL (0.000-0.060)
--- NOTE | 2018-05-14 00:53 | NUR ---
PAGE TO EDILIA GAN AND NEW ORDER RECIEVED FOR TYLENOL FOR HEADACHE.
[2018-05-14 02:02] VITALS: BP 138/81
--- NOTE | 2018-05-14 03:52 | NUR ---
PT RESTING IN BED WITH NO DISTRESS. RESPS EVEN/NONLABORED. MONITOR ND CPOC.
[2018-05-14 06:05] LABS: BASOPHILS 0.6 % (0-2); EOSINOPHILS 2.1 % (0-7); HEMATOCRIT 29.6 % (42.0-54.0); HEMOGLOBIN 9.9 g/dL (13.5-17.5); IMMATURE GRANULOCYTES 0.3 % (0-5); LYMPHOCYTES 37.8 % (15-50); MCH 28.9 pg (26.0-34.0); MCHC 33.4 g/dL (31.0-37.0); MCV 86.5 fL (80.0-100.0); MONOCYTES 19.9 % (2-11); NEUTROPHILS 39.3 % (40-80); PLATELET COUNT 193 10x3/uL (130-400); RBC 3.42 10x6/uL (4.20-6.10); RDW 14.8 % (11.5-14.5); WBC 3.4 10x3/uL (4.8-10.8)
[2018-05-14 06:09] VITALS: BP 162/91
[2018-05-14 06:59] LABS: ALBUMIN 2.3 g/dL (3.4-5.0); ALKALINE PHOSPHATASE 153 U/L (46-116); ALT (SGPT) 16 U/L (10-68); BILIRUBIN - TOTAL 0.38 mg/dL (0.2-1.3); CALC OSMOLALITY 278 mosm/kg (275-300); CALCIUM 8.8 mg/dL (8.5-10.1); CARBON DIOXIDE 25.3 mmol/L (21.0-32.0); CHLORIDE - SERUM 102 mmol/L (98-107); CKMB 1.2 U/L (0.0-3.6); CREATINE KINASE 157 UL (21-232); CREATININE - SERUM 0.8 mg/dL (0.6-1.3); GLUCOSE 165 mg/dL (74-106); MAGNESIUM - SERUM 1.6 mg/dL (1.8-2.4); POTASSIUM - SERUM 3.5 mmol/L (3.5-5.1); PROTEIN - SERUM 6.9 g/dL (6.4-8.2); SODIUM 136 mmol/L (136-145); TROPONIN-I 0.064 ng/mL (0.000-0.060); UREA NITROGEN 22 mg/dL (7-18); eGFR NON AFRICAN AMERICAN > 90 mL/min (90-120)
--- NOTE | 2018-05-14 07:25 | NUR ---
ALERT AND ORIENTED.TELEMERTY SHOWS SR. RIGHT HAND SL. UP AB GIOVANNA. HEMATOMA ABOVE RIGHT EYE BROW. LEFT LOWER ARM AMPUTATED BELOW ELBO. DENIES ANY NEEDS. SR UP WITH CALL LIGHT IN REACH
[2018-05-14 08:24] VITALS: BP 179/98
--- NOTE | 2018-05-14 10:12 | MORECARE ---
CASE MANAGEMENT DISCHARGE SUMMARY PATIENT: RIKKI RIVERA UNIT: [id number] ADM DATE: 05/13/18 AGE: 57 : 64 SEX: M ROOM/BED: D.2121 AUTHOR: KENYATTA WILL PHYSICIAN: REFERRING PHYSICIAN: JOSE IVEROSN MD DATE OF SERVICE: 05/14/18 Discharge Plan Patient Name: RIKKI RIVERA Facility: [facility]:[place] : 1960 Planned Disposition: Home Anticipated Discharge Date: 05/14/18 Discharge Date: Expected LOS: 1 Initial Reviewer: [email or web address] Initial Review Date: 05/14/2018 Generated: 05/14/18 11:12 am DCPIA - Discharge Planning Initial Assessment Updated by [email or web address]: Laurent Macdonald on 05/14/18 10:07 am * Is the patient Alert and Oriented? Yes * How many steps to enter\exit or inside your home? NONE * PCP DR. DYER * Pharmacy [facility] * Preadmission Environment Home with Family * ADLs Independent * Equipment None * Other Equipment [employer] - MEDICAL EQUIPMENT PROVIDER PREFERENCE * List name and contact numbers for known caregivers / representatives who currently or will assist patient after discharge: CLAUS SANCHEZ, SIGNIFICANT OTHER, * Verbal permission to speak to the caregivers and representatives has been obtained from the patient. Yes * Community resources currently utilized None * Please name any agencies selected above. NONE * Additional services required to return to the preadmission environment? No * Can the patient safely return to the preadmission environment? Yes * Has this patient been hospitalized within the prior 30 days at any hospital? No Patient Name: RIKKI RIVERA Page [phone] at 1012 All edits/amendments must be made on the electronic document DICTATION DATE: 05/14/18 1012 BACTERIOLOGY TECHNICIAN: SHERINE 05/14/18 1012 RPT#: [id number] DC DATE: STATUS: ADM IN [facility] [address] [place] [address] END OF REPORT
--- NOTE | 2018-05-14 10:22 | MORECARE ---
CASE MANAGEMENT DISCHARGE SUMMARY PATIENT: RIKKI RIVERA UNIT: [id number] ADM DATE: 05/13/18 AGE: 57 : 64 SEX: M ROOM/BED: D.2121 AUTHOR: KENYATTA WILL PHYSICIAN: REFERRING PHYSICIAN: JOSE IVERSON MD DATE OF SERVICE: 05/14/18 Discharge Plan Patient Name: RIKKI RIVERA Facility: [facility]:[place] : 1960 Planned Disposition: Home Anticipated Discharge Date: 05/14/18 Discharge Date: Expected LOS: 1 Initial Reviewer: [email or web address] Initial Review Date: 05/14/2018 Generated: 05/14/18 11:22 am Comments DCP- Discharge Planning Updated by [email or web address]: Laurent Macdonald on 05/14/18 9:[address] Patient Name: RIKKI RIVERA Encounter No: [id number] : 1960 Primary Insurance: MEDICAID [place] Anticipated DC Date: 05-14-2018 Planned Disposition: Home DCP follow-up note: CM RECEIVED ORDER FOR DRUG USE SCREENING. CM MET WITH PT IN ROOM TO DISCUSS DISCHARGE PLANNING AND NEEDS. RIKKI RIVERA provided verbal consent to discuss current and ongoing needs with/in the presence of: HIS SIGNIFICANT OTHER, CLAUS AND ROOMMATE. PT REPORTS LIVING AT HOME INDEPENDENTLY WITH ROOMMATE AND SIGNIFICANT OTHER. PT HAS NO MEDICAL EQUIPMENT AND NO OUTSIDE SERVICES ASSISTING IN THE HOME. CM DISCUSSED AVAILABILITY OF HOME HEALTH, REHAB SERVICES AND MEDICAL EQUIPMENT. PT DENIES DISCHARGE NEEDS, REPORTS HIS ROOMMATE WILL PICK HIM UP FOR DISCHARGE HOME. PT WANTS TO GO HOME NOW. CM DISCUSSED PT'S DRUG USE. PT REPORTS HE NORMALLY ONLY USES MARIJUANA THAT HELPS WITH HIS ANGER ISSUES. PT DID USE OTHER DRUGS AND STATES THIS IS NOT NORMAL FOR HIM. PT'S SIGNIFICANT OTHER STATES IT WAS HER FAULT. CM EXPLAINED THAT PT'S DRUG USE IS A PERSONAL DECISION AND OFFERED RESOURCES FOR DRUG TREATMENT AND COMMUNITY SUPPORT GROUPS. PT DENIES NEED OF REHAB OR SUPPORT GROUPS STATING HE QUIT USING BEFORE HE GOT INTO THE HOSPITAL AND HAS NO PLANS TO USE AGAIN. PT'S SIGNIFICANT OTHER REPORTS SHE HAS BEEN TO [facility] AND IS FAMILIAR WITH TREATMENT PROGRAMS WELL SUPPORT GROUP MEETINGS; SHE STATES THAT SHE AND PT MAY ATTEND A GROUP MEETING TOGETHER. PT DENIES NEEDS FOR DISCHARGE AND REPORTS HE IS READY TO GO HOME TODAY. PT DENIES NEED OF DRUG TREATMENT OR COMMUNITY RESOURCE INFORMATION. PT PLANS TO DISCHARGE HOME WITH HIS SIGNIFICANT OTHER AND ROOMMATE, WHO WILL TRANSPORT PT HOME AT DISCHARGE. CM TO FOLLOW AND ASSIST IF NEEDED. Laurent Macdonald, CASE MANAGEMENT DCPIA - Discharge Planning Initial Assessment Updated by [email or web address]: Laurent Macdonald on 05/14/18 10:07 am * Is the patient Alert and Oriented? Yes * How many steps to enter\exit or inside your home? NONE * PCP DR. DYER * Pharmacy [facility] [address] * Preadmission Environment Home with Family * ADLs Independent * Equipment None * Other Equipment [employer] - MEDICAL EQUIPMENT PROVIDER PREFERENCE * List name and contact numbers for known caregivers / representatives who currently or will assist patient after discharge: CLAUS SANCHEZ, SIGNIFICANT OTHER, * Verbal permission to speak to the caregivers and representatives has been obtained from the patient. Yes * Community resources currently utilized None * Please name any agencies selected above. NONE * Additional services required to return to the preadmission environment? No * Can the patient safely return to the preadmission environment? Yes * Has this patient been hospitalized within the prior 30 days at any hospital? No Last DP export: 05/14/18 9:12 am Patient Name: RIKKI RIVERA Page [phone] at 1022 All edits/amendments must be made on the electronic document DICTATION DATE: 05/14/18 1022 HELP DESK ASSOCIATE: SHERINE 05/14/18 1022 RPT#: [id number] DC DATE: STATUS: ADM IN [facility] [address] [place] [address] END OF REPORT
--- NOTE | 2018-05-14 10:44 | NUR ---
RESTING QUIETLY NAD NOTED
[2018-05-14 11:09] VITALS: BP 163/92
--- NOTE | 2018-05-14 12:10 | NUR ---
REFUSED SCD'S PER JUAN MIGUEL/MARKETING STRATEGY LEAD
[2018-05-14] MEDS ORDERED: NORVASC10 MG PO (14:59)
[2018-05-14] MEDS ORDERED: HYTRIN5 MG PO (14:59)
[2018-05-14] MEDS ORDERED: ZESTRIL40 MG PO (14:59)
--- NOTE | 2018-05-14 17:07 | NUR ---
PT DISCHARGED. IV DCD WITH TIP INTACT. TO PRIVATE CAR PER WHEELCHAIR
== END 2018-05-14 17:11 | disposition home or self-care (01) ==
LOC: D.ER 09:42 → D.M2 14:48 → D.EDHOLD 14:48 → OBSVTIME 14:49 → D.M2 15:52
PROVIDERS: Family Medicine; ADMIT Family Medicine
DX: R56.9 Unspecified convulsions (principal); E11.9 Type 2 diabetes mellitus without complications; I16.0 Hypertensive urgency; F15.90 Other stimulant use, unspecified, uncomplicated; F14.90 Cocaine use, unspecified, uncomplicated; F12.90 Cannabis use, unspecified, uncomplicated; T42.0X6A Underdosing of hydantoin derivatives, initial encounter

== ENCOUNTER 2018-05-19 21:06 | Emergency (ER) | payer MEDICAID ==
[~2018-05-19] VITALS: Ht 190.5 cm; Wt 104.5 kg
[~2018-05-19 21:06] MED LIST changes: +GLIMEPIRIDE4 MG PO
[2018-05-19 21:07] VITALS: Ht 190.5 cm; Wt 104.5 kg
[2018-05-19] MEDS ORDERED: KEPPRA1000 MG (21:11)
[2018-05-19 21:55] LABS: BASOPHILS 0.2 % (0-2); EOSINOPHILS 3.2 % (0-7); HEMOGLOBIN 11.5 g/dL (13.5-17.5); IMMATURE GRANULOCYTES 0.2 % (0-5); LYMPHOCYTES 22.7 % (15-50); MCH 29.1 pg (26.0-34.0); MCHC 32.9 g/dL (31.0-37.0); MCV 88.6 fL (80.0-100.0); MEAN PLATELET VOLUME 9.1 fL (7.4-10.4); MONOCYTES 7.9 % (2-11); NEUTROPHILS 65.8 % (40-80); PLATELET COUNT 204 10x3/uL (130-400); RBC 3.95 10x6/uL (4.20-6.10); RDW 14.6 % (11.5-14.5)
[2018-05-19 22:27] LABS: ALBUMIN 2.5 g/dL (3.4-5.0); ALKALINE PHOSPHATASE 170 U/L (46-116); ALT (SGPT) 21 U/L (10-68); BILIRUBIN - TOTAL 0.14 mg/dL (0.2-1.3); CALC OSMOLALITY 288 mosm/kg (275-300); CARBON DIOXIDE 27.7 mmol/L (21.0-32.0); CHLORIDE - SERUM 105 mmol/L (98-107); POTASSIUM - SERUM 3.9 mmol/L (3.5-5.1); PROTEIN - SERUM 7.4 g/dL (6.4-8.2); SODIUM 140 mmol/L (136-145); UREA NITROGEN 20 mg/dL (7-18); eGFR NON AFRICAN AMERICAN 82 mL/min (90-120)
[2018-05-19 22:30] LABS: GLUCOSE 224 mg/dL (74-106)
[2018-05-19 22:39] LABS: CKMB 0.6 U/L (0.0-3.6); CREATINE KINASE 43 UL (21-232); MAGNESIUM - SERUM 1.8 mg/dL (1.8-2.4); PHENYTOIN (DILANTIN) 1.3 ug/mL (10.0-20.0); TROPONIN-I 0.022 ng/mL (0.000-0.060)
[2018-05-19 22:41] LABS: APPEARANCE CLEAR (CLEAR); BILIRUBIN NEGATIVE (NEGATIVE); COLOR YELLOW (YELLOW); GLUCOSE 100 mg/dL (NEGATIVE); KETONE NEGATIVE (NEGATIVE); NITRITE NEGATIVE (NEGATIVE); PROTEIN 2+ mg/dL (NEGATIVE); UROBILINOGEN NORMAL (NORMAL)
[2018-05-19 22:42] LABS: RED CELLS - URINE 0-5 /hpf (0-5); WHITE CELLS - URINE 0-5 /hpf (0-5)
[2018-05-19 22:43] LABS: BACTERIA FEW /hpf (NONE SEEN)
[2018-05-19 22:55] LABS: UDS - AMPHET NEGATIVE QUAL (NEGATIVE); UDS - BARB NEGATIVE QUAL (NEGATIVE); UDS - BENZO NEGATIVE QUAL (NEGATIVE); UDS - COCAINE NEGATIVE QUAL (NEGATIVE); UDS - OPIATE NEGATIVE QUAL (NEGATIVE); UDS - PCP NEGATIVE QUAL (NEGATIVE); UDS - THC POSITIVE QUAL (NEGATIVE)
[2018-05-20 01:16] VITALS: BP 170/86
== END 2018-05-20 01:16 | disposition home or self-care (01) ==
LOC: D.ER 21:06
PROVIDERS: Family Medicine
DX: G40.909 Epilepsy, unspecified, not intractable, without status epilepticus (principal); I10 Essential (primary) hypertension; Z91.14 Patient's other noncompliance with medication regimen

== ENCOUNTER 2019-02-20 04:20 | Emergency (ER) | payer MEDICAID ==
[~2019-02-20] VITALS: Ht 190.5 cm; Wt 109.1 kg
[~2019-02-20 04:20] MED LIST changes: +KEPPRA1000 MG
[2019-02-20 04:27] VITALS: Ht 190.5 cm; Wt 109.1 kg
[2019-02-20] MEDS ORDERED: NIZORAL 2 % SH120 ML TOPICAL (05:10)
[2019-02-20] MEDS ORDERED: AUGMENTIN 875-11 TAB PO (05:10)
[2019-02-20] MEDS ORDERED: TYLENOL W/CODEI1 TAB PO (05:11)
[2019-02-20 05:27] VITALS: BP 139/87
== END 2019-02-20 05:28 | disposition home or self-care (01) ==
LOC: D.ER 04:20
DX: S01.81XA Laceration without foreign body of other part of head, initial encounter (principal); W19.XXXA Unspecified fall, initial encounter

== ENCOUNTER 2019-05-27 12:39 | Emergency (ER) | payer MEDICAID ==
[~2019-05-27] VITALS: Ht 190.5 cm; Wt 120.5 kg
[~2019-05-27 12:39] MED LIST changes: +AUGMENTIN 875-11 TAB PO; +NIZORAL 2 % SH120 ML TOPICAL; +TYLENOL W/CODEI1 TAB PO
[2019-05-27 13:07] VITALS: Ht 190.5 cm; Wt 120.5 kg
--- NOTE | 2019-05-27 13:59 | NUR ---
PT IS A LOW RISK. PT STATED HE GETS SAD WHEN HIS GIRLFRIEND LEAVES AND SHE WON'T HIM. COPING SKILLS REVIEWED WITH THE PT. PT VERBALIZED UNDERSTANDING. RESOURCES GIVEN TO PT. GIRLFRIEND PRESENT AND STATED WE HAVE BEEN TOGETHER FOR 6 YEARS AND I LEFT BUT I AM BACK NOW. PT STATED, "I WOULD NEVER HURT MYSELF AND I HAVE NEVER TRIED TO HURT MYSELF. I JUST GET SAD WHEN SHE LEAVES."
[2019-05-27] MEDS ORDERED: BACLOFEN20 M1 PO (14:26)
[2019-05-27] MEDS ORDERED: VOLTAREN75 MG PO (14:26)
[2019-05-27 14:48] VITALS: BP 173/86
== END 2019-05-27 14:48 | disposition home or self-care (01) ==
LOC: D.ER 12:39
DX: M54.5 Low back pain (principal); M79.10 Myalgia, unspecified site; I10 Essential (primary) hypertension; E11.9 Type 2 diabetes mellitus without complications; Z79.84 Long term (current) use of oral hypoglycemic drugs

== ENCOUNTER 2019-06-26 05:51 | Emergency (ER) | payer MEDICAID ==
[~2019-06-26] VITALS: Ht 190.5 cm; Wt 122.7 kg
[~2019-06-26 05:51] MED LIST changes: +BACLOFEN20 M1 PO; +VOLTAREN75 MG PO
[2019-06-26 05:56] VITALS: Ht 190.5 cm; Wt 122.7 kg
[2019-06-26] MEDS ORDERED: KEFLEX500 MG PO (06:49)
[2019-06-26 07:48] VITALS: BP 153/81
== END 2019-06-26 08:00 | disposition home or self-care (01) ==
LOC: D.ER 05:51
DX: S01.21XA Laceration without foreign body of nose, initial encounter (principal); W01.0XXA Fall on same level from slipping, tripping and stumbling without subsequent striking against object, initial encounter; Y93.9 Activity, unspecified; Y92.9 Unspecified place or not applicable; E11.9 Type 2 diabetes mellitus without complications; I10 Essential (primary) hypertension; Z79.84 Long term (current) use of oral hypoglycemic drugs

== ENCOUNTER 2019-10-25 19:22 | Emergency (ER) | payer MEDICAID ==
[~2019-10-25] VITALS: Ht 190.5 cm; Wt 116.4 kg
[~2019-10-25 19:22] MED LIST changes: +KEFLEX500 MG PO
[2019-10-25 19:26] VITALS: Ht 190.5 cm; Wt 116.4 kg
[2019-10-25 20:10] LABS: BASOPHILS 0.3 % (0-2); EOSINOPHILS 2.5 % (0-7); HEMOGLOBIN 11.4 g/dL (13.5-17.5); MCH 29.2 pg (26.0-34.0); MCHC 33.5 g/dL (31.0-37.0); MEAN PLATELET VOLUME 8.9 fL (7.4-10.4); MONOCYTES 13.9 % (2-11); NEUTROPHILS 42.3 % (40-80); PLATELET COUNT 165 10x3/uL (130-400); RBC 3.91 10x6/uL (4.20-6.10); RDW 13.8 % (11.5-14.5); WBC 3.2 10x3/uL (4.8-10.8)
[2019-10-25 20:19] LABS: ANION GAP 9.8 mmol/L (8-16); CALCIUM 8.6 mg/dL (8.5-10.1); CARBON DIOXIDE 25.8 mmol/L (21.0-32.0); CREATININE - SERUM 1.2 mg/dL (0.6-1.3); POTASSIUM - SERUM 3.6 mmol/L (3.5-5.1)
[2019-10-25 20:25] LABS: ALBUMIN 2.6 g/dL (3.4-5.0); BILIRUBIN - TOTAL 0.17 mg/dL (0.2-1.3); PHENYTOIN (DILANTIN) 7.1 ug/mL (10.0-20.0); PROTEIN - SERUM 7.5 g/dL (6.4-8.2)
[2019-10-25 21:52] VITALS: BP 158/88
== END 2019-10-25 21:52 | disposition home or self-care (01) ==
LOC: D.ER 19:22
PROVIDERS: Surgery
DX: M54.5 Low back pain (principal); G89.29 Other chronic pain; E11.9 Type 2 diabetes mellitus without complications; Z79.84 Long term (current) use of oral hypoglycemic drugs; R89.2 Abnormal level of other drugs, medicaments and biological substances in specimens from other organs, systems and tissues

== ENCOUNTER 2020-01-24 18:56 | Emergency (ER) | payer MEDICAID ==
[~2020-01-24] VITALS: Ht 190.5 cm; Wt 90.7 kg
[2020-01-24 19:08] VITALS: Ht 190.5 cm; Wt 90.7 kg
[2020-01-24 19:24] LABS: BASOPHILS 0 % (0-2); EOSINOPHILS 0.6 % (0-7); HEMATOCRIT 33.4 % (42.0-54.0); LYMPHOCYTES 13.1 % (15-50); MCH 28.5 pg (26.0-34.0); MCHC 32.9 g/dL (31.0-37.0); MCV 86.5 fL (80.0-100.0); MEAN PLATELET VOLUME 8.6 fL (7.4-10.4); NEUTROPHILS 78.3 % (40-80); RBC 3.86 10x6/uL (4.20-6.10); RDW 13.8 % (11.5-14.5); WBC 4.9 10x3/uL (4.8-10.8)
[2020-01-24 19:26] LABS: PLATELET COUNT 201 10x3/uL (130-400)
[2020-01-24 19:52] LABS: CALC OSMOLALITY 275 mosm/kg (275-300); CALCIUM 9.1 mg/dL (8.5-10.1); CARBON DIOXIDE 23.2 mmol/L (21.0-32.0); CHLORIDE - SERUM 102 mmol/L (98-107); GLUCOSE 245 mg/dL (74-106); POTASSIUM - SERUM 3.5 mmol/L (3.5-5.1); SODIUM 134 mmol/L (136-145); UREA NITROGEN 13 mg/dL (7-18); eGFR NON AFRICAN AMERICAN 82 mL/min (90-120)
[2020-01-24 19:58] LABS: ALBUMIN 2.7 g/dL (3.4-5.0); ALKALINE PHOSPHATASE 157 U/L (30-120); ALT (SGPT) 19 U/L (10-68); BILIRUBIN - TOTAL 0.29 mg/dL (0.2-1.3); MAGNESIUM - SERUM 1.6 mg/dL (1.8-2.4)
[2020-01-24 20:35] LABS: BILIRUBIN NEGATIVE (NEGATIVE); KETONE NEGATIVE (NEGATIVE); NITRITE NEGATIVE (NEGATIVE); UROBILINOGEN NORMAL mg/dL (< 2)
[2020-01-24 20:39] LABS: UDS - AMPHET POSITIVE QUAL (NEGATIVE); UDS - BARB NEGATIVE QUAL (NEGATIVE); UDS - BENZO NEGATIVE QUAL (NEGATIVE); UDS - COCAINE NEGATIVE QUAL (NEGATIVE); UDS - OPIATE NEGATIVE QUAL (NEGATIVE); UDS - PCP NEGATIVE QUAL (NEGATIVE); UDS - THC POSITIVE QUAL (NEGATIVE)
[2020-01-24 20:47] LABS: BACTERIA MODERATE HPF (NONE SEEN); EPITHELIAL CELLS NSEEN /hpf (0-5); WHITE CELLS - URINE NSEEN HPF (0-1)
[2020-01-24 22:09] VITALS: BP 178/92
== END 2020-01-24 22:09 | disposition home or self-care (01) ==
LOC: D.ER 18:56
PROVIDERS: Family Medicine
DX: G40.909 Epilepsy, unspecified, not intractable, without status epilepticus (principal); S00.93XA Contusion of unspecified part of head, initial encounter; X58.XXXA Exposure to other specified factors, initial encounter; F15.10 Other stimulant abuse, uncomplicated; Z91.19 Patient's noncompliance with other medical treatment and regimen; E11.9 Type 2 diabetes mellitus without complications; Z79.4 Long term (current) use of insulin

== ENCOUNTER 2020-10-25 20:29 | Emergency (ER) | payer MEDICAID ==
[~2020-10-25] VITALS: Ht 190.5 cm; Wt 113.6 kg
[2020-10-25 20:38] VITALS: Ht 190.5 cm; Wt 113.6 kg
[2020-10-25 21:54] LABS: BASOPHILS 0.3 % (0-2); EOSINOPHILS 0.3 % (0-7); HEMATOCRIT 26.5 % (42.0-54.0); HEMOGLOBIN 8.6 g/dL (13.5-17.5); LYMPHOCYTES 12.9 % (15-50); MCH 24.6 pg (26.0-34.0); MCHC 32.4 g/dL (31.0-37.0); MEAN PLATELET VOLUME 6.5 fL (7.4-10.4); NEUTROPHILS 73.5 % (40-80); RBC 3.49 10x6/uL (4.20-6.10); RDW 17.5 % (11.5-14.5); WBC 6.8 10x3/uL (4.8-10.8)
[2020-10-25 22:05] LABS: PLATELET COUNT 283 10x3/uL (130-400)
[2020-10-25 22:10] LABS: CALC OSMOLALITY 274 mosm/kg (275-300); CALCIUM 9.5 mg/dL (8.5-10.1); CHLORIDE - SERUM 97 mmol/L (98-107); CREATININE - SERUM 1.6 mg/dL (0.6-1.3); POTASSIUM - SERUM 3.4 mmol/L (3.5-5.1); SODIUM 129 mmol/L (136-145); UREA NITROGEN 23 mg/dL (7-18); eGFR NON AFRICAN AMERICAN 47 mL/min (90-120)
[2020-10-25 22:12] LABS: GLUCOSE 311 mg/dL (74-106)
[2020-10-25 22:25] LABS: ALBUMIN 1.6 g/dL (3.4-5.0); ALKALINE PHOSPHATASE 140 U/L (30-120); ALT (SGPT) 18 U/L (10-68); BILIRUBIN - TOTAL 0.38 mg/dL (0.2-1.3); LIPASE 584 U/L (73-393); MAGNESIUM - SERUM 2.1 mg/dL (1.8-2.4); PRO BNP 237 pg/mL (0-125); PROTEIN - SERUM 7.7 g/dL (6.4-8.2)
[2020-10-25 22:28] LABS: TROPONIN-I < 0.017 ng/mL (0.000-0.060)
[2020-10-26 02:30] VITALS: BP 178/87
== END 2020-10-26 02:30 | disposition home or self-care (01) ==
LOC: D.ER 20:29
PROVIDERS: Family Medicine
DX: E11.9 Type 2 diabetes mellitus without complications (principal); D64.9 Anemia, unspecified; R56.9 Unspecified convulsions; E87.1 Hypo-osmolality and hyponatremia; N28.9 Disorder of kidney and ureter, unspecified